=== PATIENT | male | born 1985 | race Caucasian/White ===

== ENCOUNTER 2017-12-14 10:38 | Inpatient (IN) | payer BC ==
[2017-12-14 12:15] VITALS: BMI 28.3
[2017-12-14] MEDS ORDERED: Dextrose 5 %-0.45 % NaCl 1,000 ML IV SCH (13:00)
[2017-12-14] MEDS ORDERED: Oseltamivir 75 MG CAP PO SCH (13:00)
[2017-12-14] MEDS ORDERED: Sodium Chloride 0.45% 1,000 ML IV SCH (13:00)
--- NOTE | 2017-12-14 13:19 | CON ---
DATE OF CONSULTATION: 12/14/2017 SERVICE: Pulmonary Medicine REASON FOR CONSULTATION: IMCU patient. HISTORY OF PRESENT ILLNESS: The patient is a 32-year-old white male with past medical history significant for type 1 diabetes mellitus. He is on an insulin pump at home. His basal rate is between 1 and 2 units per hour. He usually uses about 32 units on a daily basis for basal. He was in his usual state of health until about 2 weeks ago. He started having onset of a cough. This was stable over this entire duration. He really was not bringing up much in the way of sputum. He went to bed with that cough. This morning, he woke up with fevers, rigors, a little bit increased work of breathing, nausea with vomiting. He presented to the Emergency Department and was discovered to be in likely DKA. He also had influenza that was positive. Otherwise, he was in his usual state of health and he has no specific complaints. PAST MEDICAL HISTORY: 1. Type 1 diabetes mellitus. 2. Childhood history of asthma. 3. Hearing loss. PAST SURGICAL HISTORY: None. SOCIAL HISTORY: He previously used smokeless tobacco, one can per week. He drinks alcohol socially. He denies any street drugs. He does not have any exposure to chemicals, dust, asbestos or tuberculosis. FAMILY HISTORY: Noncontributory. ALLERGIES: PENICILLIN, AZITHROMYCIN, BENADRYL. MEDICATIONS: List of his inpatient medications were reviewed. Multiple updates were made. REVIEW OF SYSTEMS: General, head, ears, eyes, nose, throat, cardiovascular, respiratory, GI, , musculoskeletal, neurologic and skin is negative except as mentioned in the HPI. PHYSICAL EXAMINATION: VITAL SIGNS: Afebrile, pulse 92, blood pressure 119/78, respirations 24, saturation 96% on room air. GENERAL: The patient is awake, alert, in no apparent distress. LUNGS: Decent air entry. He has got Kussmaul's respirations. There is not much of a prolonged expiratory phase. He demonstrates a little bit of coarse breath sounds. HEART: Normal rate, regular. ABDOMEN: Soft, nontender, nondistended. Bowel sounds are positive. MUSCULOSKELETAL: No cyanosis or clubbing. There is no pitting in the bilateral lower extremities. NEUROLOGIC: Grossly nonfocal. LABORATORY DATA: Glucose 281, creatinine 0.7. CK 110. Bicarbonate 13. Urine ketones were abnormal. There is a little bit of proteinuria. On VBG, pH 7.28. Lactate was unremarkable. WBC 11.1, hemoglobin 16.3, platelets 318,000. IMAGING: Chest x-ray demonstrates no acute cardiopulmonary abnormality. ASSESSMENT: 1. Influenza A. 2. Acute bronchitis. 3. Diabetic ketoacidosis. PLAN: The patient will get D5 half normal saline at 125 an hour. We will put him on an insulin drip at 3 units per hour. This is going to complement his home infusion which is running at roughly 2 units per hour. We will follow his laboratories q.6 hours. Once his gap is closed, we will convert him back off of the insulin drip and start up a premeal insulin. He will remain n.p.o. for the time being. Pulmonary Critical Care will continue to follow while he remains in this location. 70 minutes have been devoted to this patient in various activities. I personally reviewed all imaging studies and laboratory data noted within this document. For at least half of this time, I was interacting with the patient at the bedside or coordinating care with the care team. For the remainder of the time I was immediately available to the patient in the hospital unit. ARMAND
[2017-12-14 13:39] LABS: Anion Gap 25 mmol/L (10-20); BUN (Urea Nitrogen) 18 mg/dL (8.9-20.6); Calc. Creatinine Clearance 113 mL/min (70-130); Calcium 8.7 mg/dL (7.8-10.44); Carbon Dioxide 11 mmol/L (22-29); Chloride 106 mmol/L (98-107); Estimated GFR-MDRD 87; Glucose 211 mg/dL (70-105); Phosphorus 3.7 mg/dL (2.3-4.7); Potassium 5.2 mmol/L (3.5-5.1); Sodium 137 mmol/L (136-145)
[2017-12-14] MEDS: traMADol HCl 50 MG TAB PO PRN ×2 (14:23→20:38)
[2017-12-14] MEDS ORDERED: Ondansetron HCl/PF 4 MG/2 ML Vial IVP PRN (17:33)
[2017-12-14] MEDS ORDERED: Acetaminophen 325 MG TAB PO PRN (17:33)
[2017-12-14] MEDS ORDERED: HYDROcodone/Acetaminophen 10/325 mg Tablet PO PRN (17:33)
[2017-12-14] MEDS ORDERED: HYDROcodone/Acetaminophen 5/325 mg Tablet PO PRN (17:33)
[2017-12-14] MEDS ORDERED: Potassium Phosphate 9 MMOL in Sodium Chloride 0.9% 100 ML IVPB PRN (17:39)
[2017-12-14] MEDS ORDERED: Magnesium Oxide 400 MG TAB PO PRN ×2 (17:39)
[2017-12-14] MEDS ORDERED: Sodium Chloride 0.9% 1,000 ML IV PRN ×4 (17:39)
[2017-12-14] MEDS ORDERED: Magnesium 2 GM/NS 0.9% 100 ML 2 GM in Premix Bag 1 BAG IVPB PRN (17:39)
[2017-12-14] MEDS ORDERED: Potassium Phosphate 15 MMOL in Sodium Chloride 0.9% 250 ML 250 ML IV PRN (17:39)
[2017-12-14] MEDS ORDERED: Dextrose 5% in Water 1,000 ML IV PRN (17:39)
[2017-12-14] MEDS ORDERED: CCU ELECTROLYTE REPLACEMENT PROTOCOL FS PRN (17:39)
[2017-12-14] MEDS ORDERED: Dextrose 5 %-0.45 % NaCl 1,000 ML IV PRN (17:39)
[2017-12-14] MEDS ORDERED: Potassium Chloride 40 MEQ in Premix Bag 1 BAG IVPB PRN (17:39)
[2017-12-14] MEDS ORDERED: Potassium Chloride 40 MEQ in Sodium Chloride 0.9% 250 ML 250 ML IVPB PRN (17:39)
[2017-12-14] MEDS ORDERED: Potassium Phosphate 12 MMOL in Sodium Chloride 0.9% 250 ML 250 ML IV PRN (17:39)
[2017-12-14] MEDS ORDERED: NS 0.9% w/ 20 MEQ KCL 1,000 ML/1,000 ML BAG IV PRN ×2 (17:39)
[2017-12-14] MEDS ORDERED: Dextrose 50% Abboject 50 ML SYRINGE SLOW IVP PRN (17:39)
[2017-12-14] MEDS ORDERED: Potassium Chloride 20 MEQ TAB PO PRN (17:39)
[2017-12-14] MEDS ORDERED: ADD ELECTROLYTE REPLACEMENT SET TO PROFILE FS SCH (17:45)
[2017-12-14] MEDS ORDERED: Insulin Regular 300 UNITS/3 ML VIAL IVP SCH (17:45)
[2017-12-14] MEDS ORDERED: Enoxaparin Sodium 40 MG/0.4 ML SYRINGE SC SCH (18:00)
[2017-12-14 19:17] LABS: Anion Gap 18 mmol/L (10-20); BUN (Urea Nitrogen) 16 mg/dL (8.9-20.6); Calc. Creatinine Clearance 101 mL/min (70-130); Calcium 8.4 mg/dL (7.8-10.44); Carbon Dioxide 15 mmol/L (22-29); Chloride 106 mmol/L (98-107); Estimated GFR-MDRD 77; Glucose 157 mg/dL (70-105); Potassium 4.2 mmol/L (3.5-5.1); Sodium 135 mmol/L (136-145)
[2017-12-14] MEDS: Oseltamivir 75 MG CAP PO SCH (20:39)
[2017-12-14] MEDS: Gabapentin 300 MG CAP PO SCH (20:39)
[2017-12-14] MEDS: Rosuvastatin 20 MG TAB PO SCH (20:39)
[2017-12-14] MEDS: D5 1/2 NS w/20 mEq KCL 1,000 ML IV PRN ×2 (20:41→23:40)
[2017-12-14] MEDS: Famotidine/PF 20 mg/2ml Vial SLOW IVP SCH (21:26)
--- NOTE | 2017-12-15 00:27 | HP ---
DATE OF ADMISSION: 12/14/2017 TIME OF SERVICE: 1740. PRIMARY CARE PHYSICIAN: Chino Hilliard M.D. PRIMARY PARTICLE BOARD SUPERVISOR: Alejandro Gaitan M.D. CHIEF COMPLAINT: Nausea and vomiting. HISTORY OF PRESENT ILLNESS: Mr. Srinivasan is a pleasant 32-year-old white male with history of diabetes m ellitus type 1, anxiety/depression, and hyperlipidemia, who [facility] with 6 hours of nausea and vomiting. He got to the ER on 0840, was having 6 hours of symptoms with 6 episodes of nausea and vomiting in th e preceding 24 hours. He was having 4 weeks' worth of cough prior to that with no sputum production. He denies any fevers or chills. No diarrhea. He has some generalized body aches and felt like he might be going into DKA with polyuria and so presented in the emergency department for evaluation. There he was found to have a VBG with a pH of 7.25, beta-hydroxybutyrate was 8.74, anion gap was almo st 30, and his flu A was positive. He was transferred to our hospital for treatment. On arrival, he was seen by Pulmonary and Critical Care. We were not notified of admission until yobani ral hours after arrival. Currently, he is not having any nausea. He is feeling better and is tolerating with IV fluids. PAST MEDICAL HISTORY: 1. Diabetes mellitus type 1, usually controlled, followed by Dr. Gaitan with Endocrinology. He is on insulin pump. 2. Anxiety/depression. On venlafaxine. 3. Hyperlipidemia. On Crestor. PAST SURGICAL HISTORY: None. HOME MEDICATIONS: 1. Crestor 20 mg p.o. at bedtime. 2. NovoLog insulin pump. 3. Tramadol 50 mg p.o. q.6 hours p.r.n. pain. 4. Venlafaxine 150 mg p.o. daily extended release. ALLERGIES: 1. PENICILLIN causes throat swelling. 2. LATEX causes a rash. 3. NATURAL RUBBER causes a rash. 4. AZITHROMYCIN causes throat swelling. 5. BENADRYL causes throat swelling. FAMILY HISTORY: Negative for clotting or bleeding disorder, no immune dysfunction. No diabetes. No premature coronary artery disease. SOCIAL HISTORY: Negative for habits x3. He lives with family. REVIEW OF SYSTEMS: A 10-point review of systems was performed and was negative for all other systems except stated as per HPI. He works at a [employer] shop and has had multiple sick contac ts there. PHYSICAL EXAMINATION: VITAL SIGNS: Temperature 98.5, pulse 113, blood pressure 106/55, respiratory rate 17, satting 93% on room air. GENERAL: He is awake. He is alert. He is oriented x3. He is an acutely ill-appearing middle-aged white male, appears to be in no acute distress. HEENT: Normocephalic and atraumatic. His pupils are equal, round, and reactive to light bilaterally . Mucous membranes are moist. No visible lesion, no thrush. NECK: Supple. No lymphadenopathy, no JVD, no thyromegaly. Good range of motion. He has normal car otid upstroke. I do not hear bruits. LUNGS: Clear. He has good air movement. Symmetrical chest excursion. He has no wheezes, no rales, no rhonchi. CARDIOVASCULAR: Tachycardic, but regular. Normal S1 and S2. I do not appreciate murmurs. ABDOMEN: Soft. It is nontender. It is nondistended. Good bowel sounds in all four quadrants. The re is no rebound, rigidity, or guarding. EXTREMITIES: No cyanosis, no clubbing. He does have trace pedal edema. He has 2+ peripheral pulse in the dorsalis pedis and posterior tibial. Radial arteries were not checked. SKIN: Warm, moist, and well perfused. There were no other rashes or lesions. NEUROLOGIC: Cranial nerves II-XII are grossly intact. He has normal strength in all 4 of his extrem ities. He has no focal deficits and a normal speech pattern. MUSCULOSKELETAL: Normal to inspection. Shoulders, elbows, hips, knees, and ankles appeared to be un inflamed. He has no palpable effusions. LABORATORY DATA: Labs here show sodium 137, potassium 5.2, chloride 106, bicarbonate 11, BUN 8, crea tinine 1.00 with anion gap of 25. Calcium is 8.7, glucose is 211. CBC at the outside ER showed a wh ite count of 11.1, hemoglobin 16.3, hematocrit of 50.7, and platelet count was 318,000. VBG showed a pH of 7.256, pCO2 of 25, pO2 of 54, calculated bicarbonate of 11, and oxygen saturation of 83%. Inf luenza A screen was positive. Influenza B screen negative. Beta-hydroxybutyrate is 8.74. ASSESSMENT AND PLAN: 1. Diabetic ketoacidosis. We will place the patient on the protocol. At this point, his gap is sti ll open, but his sugars are controlled. He is on D5 normal saline and we will continue that until hi s gap closes. He has a q.6 hour basic metabolic profile. We will continue that and replace electrol ytes as needed. Forty-five minutes of critical care was spent with the patient. 2. Diabetes mellitus type 1, normally controlled, but currently not controlled. His insulin pump is still running at a very low basal rate. He is on 3 units per hour of IV insulin here. I will conve rt to longer acting or to his pump program once he is more stable. 3. Influenza A: Acute episode, likely cause of his diabetic ketoacidosis. He is on oseltamivir her e. Chest x-ray is clear. We will hold off on other antibiotics for now. 4. Anxiety/depression: On venlafaxine, we will continue. 5. Hyperlipidemia: On Crestor, we will continue.
[2017-12-15] MEDS: D5 1/2 NS w/20 mEq KCL 1,000 ML IV PRN (03:18)
[2017-12-15 05:58] LABS: #Eosinphils 0.3 thou/uL (0.0-0.7); #Lymphocytes 3.4 thou/uL (1.20-3.40); #Monocytes 0.7 thou/uL (0.11-0.59); #Neutrophils 3.7 thou/uL (1.40-6.50); %Basophils 0.5 % (0.0-1.0); %Eosinophils 3.4 % (0.0-10.0); %Lymphocytes 41.9 % (21.0-51.0); %Monocytes 8.1 % (0.0-10.0); %Neutrophils 46.1 % (42.0-75.0); Hemoglobin 13.7 g/dL (14.0-18.0); Mean Corpuscular HGB CONC 32.4 g/dL (32.0-36.0); Mean Corpuscular Hemoglobin 30.1 pg (27.0-31.0); Mean Corpuscular Volume 92.9 fl (80.0-94.0); Mean Platelet Volume 7.4 fL (7.4-10.4); Platelet Count 259 thou/uL (130-400); RBC Distribution Width 12.1 % (11.5-14.5); Red Blood Cell (RBC) Count 4.54 mill/uL (4.70-6.10)
[2017-12-15 06:09] LABS: Anion Gap 11 mmol/L (10-20); BUN (Urea Nitrogen) 8 mg/dL (8.9-20.6); Calc. Creatinine Clearance 132 mL/min (70-130); Carbon Dioxide 19 mmol/L (22-29); Chloride 108 mmol/L (98-107); Estimated GFR-MDRD Greater than 90; Glucose 193 mg/dL (70-105); Magnesium 1.9 mg/dL (1.6-2.6); Potassium 4.1 mmol/L (3.5-5.1); Sodium 134 mmol/L (136-145)
[2017-12-15] MEDS: Enoxaparin Sodium 40 MG/0.4 ML SYRINGE SC SCH (08:30)
[2017-12-15] MEDS: Gabapentin 300 MG CAP PO SCH ×2 (08:30→20:41)
[2017-12-15] MEDS: Venlafaxine HCl XR 150 MG CAP PO SCH (08:31)
[2017-12-15] MEDS: Famotidine/PF 20 mg/2ml Vial SLOW IVP SCH (08:34)
[2017-12-15] MEDS: Oseltamivir 75 MG CAP PO SCH ×2 (08:34→20:41)
[2017-12-15] MEDS ORDERED: Dextrose 5% in Water 1,000 ML IV PRN (09:41)
[2017-12-15] MEDS ORDERED: Dextrose 50% Abboject 50 ML SYRINGE IVP PRN (09:41)
[2017-12-15] MEDS: HumaLOG 300 UNITS/3 ML VIAL SC PRN ×2 (11:33→17:53)
[2017-12-15] MEDS: HumaLOG 300 UNITS/3 ML VIAL SC SCH ×2 (11:33→17:52)
--- NOTE | 2017-12-15 12:27 | PRG ---
DATE OF SERVICE: 12/15/2017 SERVICE: Pulmonary Medicine. INTERVAL HISTORY: The patient doing really well from a cardiovascular and respiratory standpoint. Cecil pineda is breathing comfortably. He has a cough and a little bit of congestion, but he is feeling much be tter. He has a good appetite and he is tolerating p.o. He has been transitioned off of the insulin drip. He continues to raise basal rate, but on his insulin pump, he only has 19 units left. He shou ld get us another 10 hours of this drug. He does not have replacement cartridge. As such, I have to transition him on to long-acting insulin temporarily. Once he gets home, he will be able to get sukhjinder k on his long-acting insulin. OBJECTIVE: VITAL SIGNS: Afebrile, pulse 97, blood pressure 101/45, respirations 19, saturation 97% on room air. GENERAL: The patient is awake, alert, no apparent distress. LUNGS: Decent air entry. There is no prolonged expiratory phase, wheezing, rhonchi, or crackles pre sent. HEART: Normal rate, regular. ABDOMEN: Soft, nontender, nondistended. Bowel sounds are positive. MUSCULOSKELETAL: No cyanosis or clubbing. There is no pitting in the bilateral lower extremities. NEUROLOGIC: Grossly nonfocal. LABORATORY DATA: WBC 8.0, hemoglobin 13.7, platelets 259,000. Sodium 134. Basic metabolic profile is otherwise improving/unremarkable with bicarbonate that is up trending and 19, anion gap is normal. Phosphorus is 2.0, magnesium 1.9. ASSESSMENT: 1. Diabetic ketoacidosis. 2. Acute bronchitis. 3. Influenza A. PLAN: Since the patient is tolerating p.o., IV fluids will be interrupted. Once his insulin drip gets close to running out, we will put him on Levemir 13 units twice daily. We will start up 8 units premeal insulin with a moderate sliding scale on top of that. From my perspec tive, he is stable for transition out of the IMCU to the floor. At that location, I will have no fur ther requirements for inpatient pulmonary critical care opinion and I will sign off.
--- NOTE | 2017-12-15 15:51 | PDOC.PN ---
- Subjective Encounter Start Date: 12/15/17 Encounter Start Time: 15:49 Subjective: patient seen and examined feeling better tolerating po intake - Objective Resuscitation Status: Resuscitation Status FULL:Full Resuscitation Vital Signs & Weight: Vital Signs (12 hours) Temp Pulse Resp BP Pulse Ox 12/15/17 15:45 98.4 F 80 16 104/72 95 12/15/17 11:33 98.5 F 97 19 101/45 L 97 12/15/17 08:12 98.1 F 79 13 98/60 95 12/15/17 04:07 98.1 F 79 18 93/48 L 95 Weight Weight 165 lb 6.4 oz I&O: 12/14/17 12/15/17 12/16/17 06:59 06:59 06:59 Intake Total 4000 880 Output Total 700 Balance 3300 880 Result Diagrams: 12/15/17 04:34 12/15/17 04:34 Additional Labs: Accuchecks 12/15/17 12/15/17 12/15/17 10:31 08:19 07:32 POC Glucose 294 H 190 H 180 H 12/15/17 12/15/17 12/15/17 06:05 05:10 04:10 POC Glucose 228 H 173 H 186 H 12/15/17 12/15/17 12/15/17 03:16 02:10 01:14 POC Glucose 157 H 150 H 194 H 12/15/17 12/14/17 12/14/17 00:27 23:37 22:26 POC Glucose 153 H 189 H 176 H 12/14/17 12/14/17 12/14/17 21:26 20:27 18:55 POC Glucose 209 H 203 H 139 H 12/14/17 12/14/17 12/14/17 18:18 17:00 16:13 POC Glucose 155 H 157 H 194 H Phys Exam - Physical Examination Constitutional: NAD HEENT: PERRLA, moist MMs, sclera anicteric, TM's clear, oral pharynx no lesions Neck: no nodes, no JVD, supple, full ROM Respiratory: no wheezing, no rales, no rhonchi, wheezing present Cardiovascular: RRR, no significant murmur, no rub Gastrointestinal: soft, non-tender, no distention, positive bowel sounds Musculoskeletal: no edema, pulses present Dx/Plan (1) DKA, type 1 Code(s): E10.10 - TYPE 1 DIABETES MELLITUS WITH KETOACIDOSIS WITHOUT COMA Status: Acute (2) Bronchitis Code(s): J40 - BRONCHITIS, NOT SPECIFIED ACUTE OR CHRONIC Status: Acute (3) Influenza A Code(s): J10.1 - FLU DUE TO OTH IDENT INFLUENZA VIRUS W OTH RESP MANIFEST Status: Acute - Plan cont current plan of care, continue antibiotics, director of social media marketing Resume po intake -: Wean off insulin gtt -: Start Levemir bid -: Patients insulin pump to be refilled as an outpatient * .
[2017-12-15] MEDS: Rosuvastatin 20 MG TAB PO SCH (20:41)
[2017-12-15] MEDS: traMADol HCl 50 MG TAB PO PRN (20:43)
[2017-12-15] MEDS: Insulin Detemir 100 UNITS/ML 13 UNITS in Pre-Filled Syringe 1 EACH SC SCH (21:55)
[2017-12-16 05:01] LABS: Anion Gap 12 mmol/L (10-20); BUN (Urea Nitrogen) 6 mg/dL (8.9-20.6); Calc. Creatinine Clearance 146 mL/min (70-130); Calcium 8.9 mg/dL (7.8-10.44); Carbon Dioxide 26 mmol/L (22-29); Chloride 101 mmol/L (98-107); Estimated GFR-MDRD Greater than 90; Glucose 278 mg/dL (70-105); Magnesium 1.7 mg/dL (1.6-2.6); Phosphorus 2.3 mg/dL (2.3-4.7); Potassium 3.8 mmol/L (3.5-5.1); Sodium 135 mmol/L (136-145)
[2017-12-16] MEDS: HumaLOG 300 UNITS/3 ML VIAL SC PRN ×2 (05:37→12:02)
[2017-12-16 07:10] VITALS: BP 137/103; TEMP 97.7
[2017-12-16] MEDS: Oseltamivir 75 MG CAP PO SCH (08:03)
[2017-12-16] MEDS: Insulin Detemir 100 UNITS/ML 13 UNITS in Pre-Filled Syringe 1 EACH SC SCH (08:03)
[2017-12-16] MEDS: Venlafaxine HCl XR 150 MG CAP PO SCH (08:04)
[2017-12-16] MEDS: Enoxaparin Sodium 40 MG/0.4 ML SYRINGE SC SCH (08:04)
[2017-12-16] MEDS: Gabapentin 300 MG CAP PO SCH (08:04)
[2017-12-16] MEDS: HumaLOG 300 UNITS/3 ML VIAL SC SCH ×2 (08:04→12:02)
[2017-12-16] MEDS ORDERED: Insulin Detemir 100 UNITS/ML 20 UNITS in Pre-Filled Syringe SC SCH (21:00)
[2017-12-17] MEDS ORDERED: Insulin Detemir 100 UNITS/ML 15 UNITS in Pre-Filled Syringe SC SCH (09:00)
== END 2017-12-16 14:32 | disposition home or self-care (01) | DRG 193 ==
LOC: IMCU/EMU 11:34 → T4-A 12-15 15:55
PROVIDERS: ADMIT Internal Medicine; ATTEND Internal Medicine
DX: J10.1 Influenza due to other identified influenza virus with other respiratory manifestations (principal); E10.10 Type 1 diabetes mellitus with ketoacidosis without coma; F41.8 Other specified anxiety disorders; E78.5 Hyperlipidemia, unspecified; Z79.4 Long term (current) use of insulin; Z96.41 Presence of insulin pump (external) (internal); J20.9 Acute bronchitis, unspecified; Z87.891 Personal history of nicotine dependence
CPT/HCPCS: 36415; 36416; 80048; 82010; 83735; 84100; 85025; A4216; J1650; J1815; J7050; S0028